=== PATIENT | female | born 1960 | race Caucasian/White ===

== ENCOUNTER 2021-09-29 15:16 | Emergency (ER) | payer OTHER ==
[~2021-09-29] VITALS: Ht 165.1 cm; Wt 66.2 kg
[~2021-09-29 15:16] MED LIST: ACETAMINOPHEN-1 EAC1 PO; CELEXA10 MG PO; GABAPENTIN 100100 MG PO; IBUPROFEN 400400 M1 PO; ONE-A-DAY WOMENS PO; RESTORIL30 MG PO; TRAMADOL HCL50 MG PO; XANAX1 MG PO
[2021-09-29 15:42] LABS: ABSOLUTE NEUTROPHILS 7.7 thou/uL (1.4-8.2); BASOPHILS 0.6 % (0.0-2.0); EOSINOPHILS 0.3 % (0.0-3.0); HEMATOCRIT 45.4 % (37.0-47.0); HEMOGLOBIN 15.6 gm/dL (12.0-15.0); LYMPHOCYTES 17.6 % (24.0-44.0); MCH 32.3 pg (26.0-34.0); MCHC 34.5 g/dL (28.0-37.0); MCV 93.7 fL (80.0-100.0); MONOCYTES 6.2 % (1.0-8.0); PLATELET COUNT 368 thou/uL (150-400); POLYS 75.3 % (36.0-66.0); RBC 4.84 mil/uL (4.20-5.00); RDW 13.6 % (10.5-14.5); WBC 10.3 thou/uL (4.0-11.0)
[2021-09-29 15:50] LABS: CALCIUM 10.5 mg/dL (8.5-10.1); CREATININE 1.4 mg/dL (0.6-1.0); POTASSIUM 3.5 mmol/L (3.5-5.1)
[2021-09-29] MEDS ORDERED: LISINOPRIL5 MG PO (15:58)
[2021-09-29 16:47] LABS: ALBUMIN 4.4 g/dL (3.4-5.0); DIRECT BILIRUBIN 0.2 mg/dL (<0.1-0.2); TOTAL BILIRUBIN 1.3 mg/dL (0.2-1.0)
[2021-09-29 18:04] LABS: URINE BILIRUBIN NEGATIVE (Negative); URINE BLOOD TRACE (Negative); URINE CLARITY CLEAR; URINE COLOR YELLOW; URINE GLUCOSE-RANDOM* NEGATIVE (Negative); URINE KETONES TRACE (Negative); URINE LEUKOCYTES-REFLEX NEGATIVE (Negative); URINE NITRITE-REFLEX NEGATIVE (Negative); URINE PROTEIN (DIPSTICK) TRACE (Negative); URINE UROBILINOGEN 0.2 E.U./dl (0.2-1.0)
[2021-09-29] MEDS ORDERED: CARAFATE 1 GM TA1 G1 PO (18:15)
[2021-09-29] MEDS ORDERED: OMEPRAZOLE40 MG PO (18:15)
[2021-09-29] MEDS ORDERED: BENTYL 10 MG CA10 M1 PO (18:15)
[2021-09-29 18:38] VITALS: BP 118/71
[2021-09-29] MEDS ORDERED: ONDANSETRON HCL4 M2 PO (18:39)
== END 2021-09-29 18:38 | disposition home or self-care (01) ==
LOC: ER 15:16
PROVIDERS: Emergency Medicine; Nurse Practitioner
DX: R10.84 Generalized abdominal pain (principal); R11.2 Nausea with vomiting, unspecified; Z90.710 Acquired absence of both cervix and uterus; Z79.891 Long term (current) use of opiate analgesic; Z79.899 Other long term (current) drug therapy